=== PATIENT | male | born 1980 | race Caucasian/White ===

== ENCOUNTER 2017-04-30 17:17 | Emergency (ER) | payer OTHER ==
[2017-04-30 18:26] LABS: BILIRUBIN NEGATIVE (NEGATIVE); BLOOD NEGATIVE Ery/uL (NEGATIVE); CLARITY CLEAR (CLEAR); COLOR YELLOW (YELLOW); GLUCOSE (U) NORMAL (NORMAL); KETONE (U) NEGATIVE (NEGATIVE); LEUKOCYTES NEGATIVE Leu/uL (NEGATIVE); NITRITE NEGATIVE (NEGATIVE); PROTEIN NEGATIVE (NEGATIVE); SPECIFIC GRAVITY 1.025 (1.001-1.030); UROBILINOGEN 0.2 mg/dL (0.2-1.0)
[2017-04-30 18:40] LABS: AMPHETAMINES NEGATIVE (NEGATIVE); BARBITURATES NEGATIVE (NEGATIVE); BENZODIAZEPINES NEGATIVE (NEGATIVE); COCAINE NEGATIVE (NEGATIVE); MARIJUANA (THC) NEGATIVE (NEGATIVE); METHADONE NEGATIVE (NEGATIVE); TRICYCLIC ANTIDEPRESSANT NEGATIVE (NEGATIVE)
== END 2017-04-30 20:44 | disposition home or self-care (01) ==
LOC: FER 17:17
PROVIDERS: Nurse Practitioner Family
DX: S09.90XA Unspecified injury of head, initial encounter (principal); S16.1XXA Strain of muscle, fascia and tendon at neck level, initial encounter; S29.012A Strain of muscle and tendon of back wall of thorax, initial encounter; S39.012A Strain of muscle, fascia and tendon of lower back, initial encounter; M79.641 Pain in right hand; I10 Essential (primary) hypertension; J45.909 Unspecified asthma, uncomplicated; F17.210 Nicotine dependence, cigarettes, uncomplicated; Z79.51 Long term (current) use of inhaled steroids; Z79.899 Other long term (current) drug therapy; W11.XXXA Fall on and from ladder, initial encounter; Y92.69 Other specified industrial and construction area as the place of occurrence of the external cause; Y99.0 Civilian activity done for income or pay
CPT/HCPCS: 70450; 72040; 72072; 72100; 73130; 80305; 81003; J1100; J1885

== ENCOUNTER 2021-09-02 13:56 | Emergency (ER) | payer SELFPAY ==
[~2021-09-02 13:56] MED LIST: COZAAR50 MG PO; LOPRESSOR25 MG PO; NAPROXEN500 MG PO; PERCOCET 5-3251 EACH PO; PROAIR HFA8.5 GM INH
[2021-09-02] MEDS ORDERED: CYCLOBENZAPRINE10 MG PO (16:51)
[2021-09-02] MEDS ORDERED: NAPROXEN500 MG PO (16:51)
== END 2021-09-02 17:08 | disposition home or self-care (01) ==
LOC: FER 13:56
DX: S46.812A Strain of other muscles, fascia and tendons at shoulder and upper arm level, left arm, initial encounter (principal); S16.1XXA Strain of muscle, fascia and tendon at neck level, initial encounter; I10 Essential (primary) hypertension; J45.909 Unspecified asthma, uncomplicated; W19.XXXA Unspecified fall, initial encounter; Y92.89 Other specified places as the place of occurrence of the external cause; Y99.0 Civilian activity done for income or pay
CPT/HCPCS: 72050; 72072; 73030; J1885

== ENCOUNTER 2022-06-03 11:44 | Emergency (ER) | payer SELFPAY ==
[~2022-06-03 11:44] MED LIST changes: +CYCLOBENZAPRINE10 MG PO
[2022-06-03 14:42] LABS: BASOPHIL 0.5 % (0-2); EOSINOPHIL 0.2 % (0-5); HGB 16.3 g/dl (13.2-18.0); MCH 29.8 pg (25.0-31.0); MCHC 34.7 g/dL (32.0-36.0); MCV 85.9 fL (78.0-100.0); MONOCYTE 4.3 % (0-12); MPV 10.7 fL (6.0-9.5); NEUTROPHIL 77.4 % (41-80); NRBC 0; PLT 199 K/uL (150-400); RBC 5.47 M/uL (4.70-6.00); RDW 12.5 % (11.5-14.0); WBC 13.3 K/uL (4.0-10.5)
[2022-06-03 15:17] LABS: BILIRUBIN NEGATIVE (NEGATIVE); BLOOD TRACE-INTACT Ery/uL (NEGATIVE); CLARITY CLEAR (CLEAR); COLOR YELLOW (YELLOW); GLUCOSE (U) NORMAL (NORMAL); LEUKOCYTES NEGATIVE Leu/uL (NEGATIVE); NITRITE NEGATIVE (NEGATIVE); PROTEIN NEGATIVE (NEGATIVE); SPECIFIC GRAVITY 1.015 (1.001-1.030); UROBILINOGEN 0.2 mg/dL (0.2-1.0)
[2022-06-03 15:29] LABS: CALCIUM OXALATE CRYSTALS TRACE
[2022-06-03 15:36] LABS: ALBUMIN 3.6 g/dL (3.4-5.0); BILIRUBIN - TOTAL 0.4 mg/dL (0.2-1.0); BUN/CREAT RATIO (CALC) 14.8 RATIO; CREATININE 1.15 mg/dL (0.67-1.17); GLOBULIN (CALCULATION) 3.1 g/dL; POTASSIUM 4.4 mmol/L (3.5-5.1); TOTAL PROTEIN 6.7 g/dL (6.4-8.2)
[2022-06-03] MEDS ORDERED: NORCO 5-325 TA1 EACH PO (17:33)
[2022-06-03] MEDS ORDERED: FLOMAX0.4 MG PO (17:33)
[2022-06-03] MEDS ORDERED: ONDANSETRON ODT4 MG PO (17:33)
== END 2022-06-03 18:56 | disposition home or self-care (01) ==
LOC: FER 11:44
PROVIDERS: Emergency Medicine
DX: N13.2 Hydronephrosis with renal and ureteral calculous obstruction (principal); F17.200 Nicotine dependence, unspecified, uncomplicated; Z28.310 Unvaccinated for COVID-19
CPT/HCPCS: 36415; 80053; 81001; 82150; 83690; 85025; 99284; J1885; J2405; J7030